=== PATIENT | male | born 1990 | race Caucasian/White ===

== ENCOUNTER 2017-06-12 11:05 | Emergency (ER) | payer SELFPAY ==
[~2017-06-12] VITALS: Ht 167.6 cm; Wt 82.7 kg
[2017-06-12] MEDS ORDERED: LIDOCAINE HCL 1%/EPI 1:200,000 30 ML VIAL MC ONE (12:30)
[2017-06-12] MEDS ORDERED: HYDROCODONE/ACETAMINOPHEN 5/325MG TABLET PO ONE (12:30)
[2017-06-12] MEDS ORDERED: SULFAMETHOXAZOLE/TRIMETHOPRIM 400/80MG TAB PO ONE (12:30)
[2017-06-12] MEDS ORDERED: ONDANSETRON 4MG ODT PO ONE (12:30)
[2017-06-12] MEDS ORDERED: CEPHALEXIN 500MG CAPSULE PO ONE (12:30)
[2017-06-12 13:59] VITALS: BP 106/59
== END 2017-06-12 14:06 | disposition home or self-care (01) ==
LOC: ER 11:05
DX: L02.31 Cutaneous abscess of buttock (principal); F17.210 Nicotine dependence, cigarettes, uncomplicated
CPT/HCPCS: 10060; 87070; 87076; 87077; 87205; 99284; Q0162